=== PATIENT | female | born 1940 | race Caucasian/White ===

== ENCOUNTER → 2021-01-28 20:24 | Outpatient (CLI) | payer MEDICARE ==
[~2021-01-28 20:24] MED LIST: ALEVE220 MG PO; BAYER CHEWABLE81 MG PO; CITRATE OF MAG300 ML PO; CYCLOBENZAPRINE10 MG PO; DEPAKOTE ER500 MG PO; DEPAKOTE125 MG PO; DULCOLAX5 MG PO; EXELON1 PATCH .2 TRANSDERM; FLORANEX / LACT1 TAB PO; HALDOL5 MG PO; HALOPERIDOL1 MG PO; ISOSORBIDE DINI10 MG PO; KLONOPIN0.5 MG PO; LEVSIN/ANASP0.125 MG PO; LIDODERM 5 %1 PATCH TRANSDERM; MELATONIN 3 MG1 TAB PO; MILK OF MAGNESI30 ML PO; NAPROSYN250 MG PO; PERPHENAZINE2 MG PO; PRAVACHOL40 MG PO; PROTONIX40 MG PO; REMERON15 MG PO; SEROQUEL200 MG PO; SIMETHICONE PO; SYSTANE 0.3-0.4%5 ML EACH EYE; TRAZODONE HCL50 MG PO; TUMS500 MG PO; ULTRAM50 MG PO; VITAMIN D31000 UNIT PO; [UNRECOGNIZED DRUG - OTHER] PO
[2021-01-28 22:46] LABS: BILIRUBIN NEGATIVE (NEGATIVE); KETONE SMALL mg/dL (NEGATIVE); NITRITE POSITIVE (NEGATIVE); UROBILINOGEN NORMAL mg/dL (< 2)
[2021-01-28 22:47] LABS: BACTERIA MANY HPF (NONE SEEN); SQUAMOUS EPITHELIAL 0-5 HPF (0-4); WHITE CELLS - URINE >50 HPF (0-4)
== END | disposition home or self-care (01) ==
LOC: D.LABREF 20:24
DX: R52 Pain, unspecified (principal)